=== PATIENT | female | born 1940 | race Caucasian/White ===

== ENCOUNTER → 2016-07-14 | Outpatient (CLI) | payer MEDICARE, BC ==
[~2016-07-14] MED LIST: AGGRENOX PO; LEVOXYL75 MCG PO; LIPITOR PO; LISINOPRIL PO; LORTAB 5/500 TA1 TA1 PO; PLAVIX PO; PRAVACHOL PO; PREVASTATIN; SYNTHROID PO; [UNRECOGNIZED DRUG - REMARK]
--- NOTE | ~2016-07-14 | MR113 ---
[facility] A Service of [facility] & [facility] RADIOLOGY TEXT RESULTS PATIENT: WILMA VILLAGOMEZ LOCATION: [facility] : 41 UNIT #: [id number] AGE: [address]: Sangita Leone MD SEX: F ORDER DR: [id number] [facility] [address] [place], [place] [address] [id number] O MR#: [id number] Acc #: [id number] NAME: WILMA VILLAGOMEZ : 1940 SEX: F STUDY DATE/TIME: 07/14/2016 7:16 UNIT: [facility] ROOM: STUDY DESCRIPTION: MR Lumbar Wo Contrast Attending Physician: Sangita Leone M.D. Referring Physician: Sangita Leone M.D. Ordering Physician: Sangita Leone M.D. Primary Care Physician: Sangita Leone M.D. MRI CENTER REPORT This report is preliminary unless electronic signature is present. EXAM MRI lumbar spine without. HISTORY Sciatica, chronic low back pain for 20+ years, left buttock pain, no numbness. Standing increases pain, pain increasing all over. Has had chiropractic treatments. No lumbar spine surgery, fall. Patient has had a squamous cell skin cancer. COMMENT MRI of the lumbar spine performed without contrast using routine 1.5T imaging technique. Plain film comparison is from a 09/23/2012. There is mild levoconvex scoliosis mid to upper lumbar spine. 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 Using this numbering, axial imaging obtained from L2-3 through S1-2. Sagittal alignment is normal. There is multiple level endplate spondylosis, loss of intervertebral disc height disc desiccation L1-2 through L4-5 levels. There is multiple level mixed marrow endplate degenerative change. Conus medullaris terminates at the L2 level and is normal. At L1-2 on sagittal imaging, there is mild chronic anterior wedging at L1 and L2 with severe loss of disc height, anterior plate spondylosis, minor posterior disc bulge. No apparent canal stenosis. There is mild exaggeration of kyphosis related to the mild chronic anterior vertebral body height loss. No foraminal impingement. At L2-3, there is minor concentric disc bulging, endplate spondylosis, and a superimposed broad posterior extrusion which extends caudad from the disc level, but remains contiguous with it. It is more prominent in a right paramedian location, such that there is mass effect upon expected location of the right L3 root in the right lateral recess. Mild effacement of the anterior thecal sac. Mild bilateral inferior foraminal STS. [facility] A Service of [facility] RADIOLOGY TEXT RESULTS PATIENT: WILMA VILLAGOMEZ LOCATION: [facility] : 41 UNIT #: [id number] AGE: [address]: Sangita Leone MD SEX: F ORDER DR: [email or web address]. At L3-4, mild facet degenerative change bilaterally, moderate concentric desiccated disc bulging endplate spondylosis, with superimposed broad posterior protrusion. There is mild effacement of the anterior thecal sac. Mild mass effect on the right lateral recess but no central canal stenosis. [id number]-tq-[id number] right, milder left-sided foraminal narrowing. At L4-5, there is moderate facet degenerative change bilaterally with ligamentum flavum thickening. Epidural fat pad is prominent. There is minor concentric desiccated disc bulging with superimposed broad posterior protrusion. The combination of findings results in moderate to severe central canal stenosis. The size of the epidural fat pad meets criteria for epidural lipomatosis at this level. There is also extension of disc material into foramina with [id number] bilateral foraminal narrowing. At L5-S1, there is kupm-ik-uegaesju facet degenerative change bilaterally. Minor broad-based posterior disc bulge. Mild prominence of the epidural fat. No canal stenosis and no foraminal impingement. At S1-2, no significant abnormality. S1 vertebral body has a pseudoarticulation on the right side with S2. Mild atrophy of multifidus musculature in general. IMPRESSION 1. Spine is numbered assuming that S1 is lumbarized and transitional and using this numbering, the axial imaging is obtained from L2-3 through S1-2. Counting is based upon plain film study from 09/23/2012. 2. Using this numbering, canal stenosis is most severe at the L4-5 level, where it is moderate to severe due to a combination of degenerative disease and epidural lipomatosis. Please refer to the [id number] description of findings. If intervention is contemplated, please be aware of the numbering utilized. Dictated by... Margo Menendez M.D. THIS IS AN ELECTRONICALLY VERIFIED REPORT Margo Menendez M.D. at 07/14/2016 12:11 PM SAC/elle TD: 07/14/2016 12:00 JOB #: [id number] MRI CENTER REPORT [facility]. [facility] A Service of [facility] & [facility] RADIOLOGY TEXT RESULTS PATIENT: WILMA VILLAGOMEZ LOCATION: [facility] : 41 UNIT #: [id number] AGE: [address]: Sangita Leone MD SEX: F ORDER DR: COPY
== END | disposition home or self-care (01) ==
LOC: CMRI 06:39
DX: M54.30 Sciatica, unspecified side (principal); M48.06 Spinal stenosis, lumbar region; M51.36 Other intervertebral disc degeneration, lumbar region; E88.2 Lipomatosis, not elsewhere classified
CPT/HCPCS: 72148